=== PATIENT | male | born 1970 | race Caucasian/White ===

== ENCOUNTER 2017-11-30 11:09 | Day surgery (SDC) | payer BC ==
[~2017-11-30] VITALS: Ht 177.8 cm; Wt 112.6 kg
[2017-11-30] VITALS (9 sets, daily range): BP systolic 119–152; BP diastolic 67–85; PULSE 93–105; TEMP 99.2
[2017-11-30] MEDS ORDERED: SYNTHROID0.175 MG PO (11:37)
[2017-11-30] MEDS ORDERED: DEPO-TESTOS100 MG/ML IM (11:48)
[2017-11-30] MEDS ORDERED: NEURONTIN300 MG/CAP PO (11:55)
[2017-11-30 11:56] LABS: BASO % 0.4 % (0.0-2.0); EOS # 0.1 (0.0-0.7); EOS % 1.2 % (0-4.0); GRAN # 5.5 (1.4-6.5); GRAN % 65.2 % (42.2-75.2); HEMATOCRIT 37.9 % (42.0-52.0); HEMOGLOBIN 12.4 g/dl (13.5-18.0); LYMPH # 1.7 (1.2-3.4); LYMPH % 19.6 % (20.0-51.0); MEAN CELL VOLUME 91 fl (80.0-100.0); MEAN CORPUSCULAR HEMOGLOBIN 30 pg (27.0-31.0); MEAN CORPUSCULAR HGB CONC 33 g/dl (33.0-37.0); MEAN PLATELET VOLUME 8.7 fl (7.4-10.4); MONO # 1.1 (0.1-0.6); MONO % 12.8 % (1.7-9.3); PLATELET COUNT 370 K/mm3 (130-400); RED BLOOD COUNT 4.16 M/mm3 (4.20-5.60); REDCELL DISTRIBUTION WIDTH-CV 12.7 % (11.5-14.5)
[2017-11-30 12:28] LABS: ERYTHROCYTE SEDIMENTATION RATE 43 mm/hr (0-15)
[2017-12-01 02:47] VITALS: BP 125/59; PULSE 93; TEMP 98.6
[2017-12-01] MEDS ORDERED: ASPIRIN 32325 MG/TA1 PO (06:53)
[2017-12-01] MEDS ORDERED: NORCO 325 MG-7.1 TAB PO (06:53)
[2017-12-01 07:44] VITALS: BP 108/55; PULSE 73; TEMP 97.6
[2017-12-01 09:32] LABS: ALBUMIN 3.7 gm/dL (3.5-5.0); BILIRUBIN,TOTAL 0.2 mg/dL (0.0-1.0); CALCIUM 8.8 mg/dL (8.4-10.2); CREATININE, serum 0.85 mg/dL (0.66-1.25); POTASSIUM 4.2 mmol/L (3.4-5.0); TOTAL PROTEIN 6.9 gm/dL (6.4-8.2)
[2017-12-01 12:26] VITALS: BP 117/71; PULSE 79; TEMP 98
== END 2017-12-01 14:00 | disposition home or self-care (01) ==
LOC: SDCO 11:09 → SURG 15:32 → SDCO 15:45 → SURG 16:48 → SDCO 12-01 14:00
PROVIDERS: Internal Medicine Infectious Disease; Orthopaedic Surgery
DX: T81.49XA Infection following a procedure, other surgical site, initial encounter (principal); F17.210 Nicotine dependence, cigarettes, uncomplicated; E07.9 Disorder of thyroid, unspecified; Z79.899 Other long term (current) drug therapy; G47.33 Obstructive sleep apnea (adult) (pediatric); G47.00 Insomnia, unspecified; G89.29 Other chronic pain
CPT/HCPCS: OP; J0690; J1100; J1170; J1885; J2405; J2704; J3010